=== PATIENT | female | born 1990 | race African-American/Black ===

== ENCOUNTER → 2016-12-09 23:45 | Outpatient (CLI) | payer MEDICAID ==
[~2016-12-09 23:45] MED LIST: PRENATAL COMPLE1 TAB PO
== END | disposition home or self-care (01) ==
LOC: D.LDO 23:45
DX: Z34.03 Encounter for supervision of normal first pregnancy, third trimester (principal); Z3A.40 40 weeks gestation of pregnancy; R10.10 Upper abdominal pain, unspecified

== ENCOUNTER 2018-05-08 14:18 | Emergency (ER) | payer MEDICAID ==
[~2018-05-08] VITALS: Ht 165.1 cm; Wt 50.0 kg
[2018-05-08 14:34] VITALS: Ht 165.1 cm; Wt 50.0 kg
[2018-05-08] MEDS ORDERED: LEXAPRO10 MG PO (14:36)
[2018-05-08] MEDS ORDERED: ROBAXIN-750750 MG PO (16:04)
[2018-05-08] MEDS ORDERED: VOLTAREN75 MG PO (16:04)
[2018-05-08 16:23] VITALS: BP 122/84
== END 2018-05-08 16:20 | disposition home or self-care (01) ==
LOC: D.ER 14:18
DX: S16.1XXA Strain of muscle, fascia and tendon at neck level, initial encounter (principal); V43.62XA Car passenger injured in collision with other type car in traffic accident, initial encounter; Y93.89 Activity, other specified; Y92.410 Unspecified street and highway as the place of occurrence of the external cause; M62.838 Other muscle spasm; M54.2 Cervicalgia

== ENCOUNTER 2018-07-12 00:28 | Emergency (ER) | payer MEDICAID ==
[~2018-07-12] VITALS: Ht 165.1 cm; Wt 56.8 kg
[~2018-07-12 00:28] MED LIST changes: +LEXAPRO10 MG PO; +ROBAXIN-750750 MG PO; +VOLTAREN75 MG PO
[2018-07-12 00:33] VITALS: Ht 165.1 cm; Wt 56.8 kg
[2018-07-12 02:00] VITALS: BP 112/78
[2018-07-12] MEDS ORDERED: HYDROCODON-ACE1 EAC7 PO (02:57)
[2018-07-12] MEDS ORDERED: ERYTHROMYCIN OPT1 GM EACH EYE (02:57)
== END 2018-07-12 03:40 | disposition home or self-care (01) ==
LOC: D.ER 00:28
DX: T14.8XXA Other injury of unspecified body region, initial encounter (principal); V49.9XXA Car occupant (driver) (passenger) injured in unspecified traffic accident, initial encounter; Y93.89 Activity, other specified; Y92.410 Unspecified street and highway as the place of occurrence of the external cause; S05.02XA Injury of conjunctiva and corneal abrasion without foreign body, left eye, initial encounter; M79.601 Pain in right arm; F17.200 Nicotine dependence, unspecified, uncomplicated